=== PATIENT | male | born 1960 | race Caucasian/White ===

== ENCOUNTER 2020-12-13 12:54 | Day surgery (SDC) | payer OTHER ==
[2020-12-12 14:00] LABS: ALANINE AMINOTRANSFERASE 45 U/L (12-78); ALBUMIN 3.7 g/dL (3.4-5.0); ANION GAP 6 mmol/L (5-15); CALCIUM 8.8 mg/dL (8.5-10.1); CHLORIDE 108 mmol/L (98-107)
[2020-12-12 14:02] LABS: ALKALINE PHOSPHATASE 77 U/L (45-117); BILIRUBIN,TOTAL 1.2 mg/dL (0.2-1.0); CREATININE 1.15 mg/dL (0.7-1.3); TOTAL PROTEIN 7.4 g/dL (6.4-8.2)
[~2020-12-13] VITALS: Ht 177.8 cm; Wt 111.7 kg
[~2020-12-13 12:54] MED LIST: ACET500C7 PO; ALPH200C PO; ASCO500T8 PO; CHOL10003 PO; CYAN-27 PO; FOLI1TAB66 PO; LANS30CA PO; LISI40TA9 PO; [UNRECOGNIZED DRUG - CODE] PO
[2020-12-13] MEDS ORDERED: CHLORHEXIDINE 15 ML UDC ONE (13:45)
[2020-12-13] MEDS ORDERED: LACTATED RINGERS 1,000 ML IV SCH ×2 (14:00→14:30)
[2020-12-13] MEDS ORDERED: CHLORHEXIDINE 15 ML UDC PO ONE ×2 (14:00→14:30)
[2020-12-13 14:04] VITALS: BP 169/88
[2020-12-13] MEDS ORDERED: FENTANYL PF 100 MCG/2ML ONE ×2 (14:08→15:10)
[2020-12-13] MEDS ORDERED: MIDAZOLAM 1 MG/ML, 2ML ONE (14:09)
[2020-12-13] MEDS ORDERED: OXYcodone 5 MG/5 ML ORAL.SOL UDC PO PRN (14:30)
[2020-12-13] MEDS ORDERED: LABETALOL 5MG/ML, 20ML IV PRN (14:30)
[2020-12-13] MEDS ORDERED: HYDROmorphone 1 MG/ML, 1ML INJ IVPush PRN (14:30)
[2020-12-13] MEDS ORDERED: hydrALAzine 20 MG/ML, 1ML IV PRN (14:30)
[2020-12-13] MEDS ORDERED: METHOCARBAMOL 1,000 MG in DEXTROSE 5% 100 ML IV PRN (14:30)
[2020-12-13] MEDS ORDERED: ALBUTEROL SULFATE 2.5 MG/3 ML NPPB PRN (14:30)
[2020-12-13] MEDS ORDERED: MEPERIDINE/PF 25MG/0.5ML IVPush PRN (14:30)
[2020-12-13] MEDS ORDERED: PROMETHAZINE 25 MG/ML, 1ML IVPush PRN (14:30)
[2020-12-13] MEDS ORDERED: ACETAMINOPHEN 325 MG TABLET PO PRN (14:30)
[2020-12-13] MEDS ORDERED: CEFAZOLIN 1,000 MG ONE ×2 (14:49)
[2020-12-13] MEDS ORDERED: KETOROLAC 30 MG/1 ML ONE (14:49)
[2020-12-13] MEDS ORDERED: ONDANSETRON 2MG/ML, 2ML ONE (14:49)
[2020-12-13] MEDS ORDERED: DEXAMETHASONE 4 MG/ML, 1ML ONE (14:49)
[2020-12-13] MEDS ORDERED: PROPOFOL 10 MG/ML, 20ML ONE (14:49)
[2020-12-13] MEDS ORDERED: SODIUM CHLORIDE 0.9% BLADIN ONE (15:00)
[2020-12-13] MEDS ORDERED: GEMCITABINE HCL BLADIN ONE (15:00)
[2020-12-13] MEDS ORDERED: OXYcodone 5 MG/5 ML ORAL.SOL UDC ONE (15:11)
[2020-12-13] MEDS: FENTANYL PF 100 MCG/2ML IV PRN ×2 (15:13→15:20)
== END 2020-12-13 18:30 | disposition home or self-care (01) ==
LOC: OUT 12:54
PROVIDERS: ATTEND Urology
DX: D49.4 Neoplasm of unspecified behavior of bladder (principal); N40.0 Benign prostatic hyperplasia without lower urinary tract symptoms; I10 Essential (primary) hypertension; K21.9 Gastro-esophageal reflux disease without esophagitis; F17.290 Nicotine dependence, other tobacco product, uncomplicated; E66.9 Obesity, unspecified; Z68.33 Body mass index [BMI] 33.0-33.9, adult; Z20.822 Contact with and (suspected) exposure to COVID-19; Z79.899 Other long term (current) drug therapy; Z87.442 Personal history of urinary calculi; Z98.52 Vasectomy status
CPT/HCPCS: 36415; 51720; 52235; 80053; 88305; 93005; J0690; J1100; J1885; J2250; J2405; J2704; J3010; J7120; J9201; U0003